=== PATIENT | female | born 2000 | race African-American/Black ===

== ENCOUNTER 2024-04-04 10:45 | Emergency (ER) | payer SELFPAY ==
--- OUTSIDE RECORDS SUMMARY | 2024-04-04 10:47 | XMS REPORT | Continuity of Care Document ---
Author Name Unknown Address [address] [place] [address] [facility] thconnect Address 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 Role Phone Pcp, Patient Does Not Have A Primary Care Physic josh LEELEE RAMÍREZ Attending Clinician Unavailable Lisa Grijalva MD Attending Clinician [phone] LISA GRIJALVA Attending Clinician Unavailable Doctor Unassigned, [place] Attending Clinician U navailable Payers Payer Name Policy Type Policy Number Effective Date Expirati on Date Source Problems Condition Name Condition Details Condition Category Status Onset Date Resolution Date Last Treatment Date Treating Clinician Comments Source Nausea and vomiting, unspecifie d vomiting type Nausea and vomiting, unspecifie d vomiting type Disease Active 07-05 00:00: 00 [facility] No known active problems No known active problems Disease [facility] Allergies, Adverse Reactions, Alerts Allergy Name Allergy Type Status Severity Reaction(s) Onset Date Inactive Date Treating Clinician Comments Source NO KNOWN ALLERGIE S Drug Class Active [facility] Social History Social Habit Start Date Stop Date Quantity Comments Source Sexual orientation [facility] Alcohol intake 2023-07-05 00:00:00 2023-07-05 00:00:00 Ex-drinker (finding) [facility] History of Social function 2023-07-05 00:00:00 2023-07-05 00:00:[address] [facility] Tobacco use and exposure 2021-03-08 00:00:00 2021-03-08 00:00:00 Smokeless tobacco non-user [facility] Sex Assigned At 2000 00:00:00 2000 00:00:[address] [facility] Smoking Status Start Date Stop Date Source Never smoked tobacco [facility] Medications Ordered Medication Name Filled Medication Name Start Date Stop Date Current Medication? Ordering Clinician Indication Dosage Frequency Signature (SIG) Comments Components Source NaCl 0.9% (NS) bolus infusion 1,000 mL 07-05 09:30: 00 07-05 10:43 :00 No 1000mL at 999 mL/hr, 1,000 mL, IV Infusion, ONCE, 1 dose, On Valerie 07/05/23 at 0330, SHEBA [facility] dicyclomine (BENTYL) injection 20 mg 07-05 09:30: 00 07-05 08:58 :00 No 20mg 20 mg, Intramuscu lar, ONCE, 1 dose, On Valerie 07/05/23 at 0330, Routine [facility] ondansetron (ZOFRAN (PF)) injection 4 mg 07-05 09:30: 00 07-05 08:58 :00 No 4mg 4 mg, Slow IV Push, ONCE, 1 dose, On Valerie 07/05/23 at 0330, SHEBA [facility] ondansetron (ZOFRAN) 4 mg tablet 07-05 00:00: 00 Yes [id number] 4mg Take 1 tablet by mouth every 8 (eight) hours. [facility] No known medications 03-08 09:26: 31 No [facility] Vital Signs Vital Name Observation Time Observation Value Comments S fariba Systolic blood pressure 2023-07-05 10:38:00 103 mm[Hg] [facility] Diastolic blood pressure 2023-07-05 10:38:00 67 mm[Hg] [facility] Heart rate 2023-07-05 10:38:00 92 /min [facility] Body temperature 2023-07-05 10:38:[address] [facility] Respiratory rate 2023-07-05 10:38:00 16 /min [facility] Oxygen saturation in Arterial blood by Pulse oximetry 2023-07-05 10:38:00 99 /min [facility] Body height 2023-07-05 08:44:00 160 cm [facility] Body weight 2023-07-05 08:44:00 46.267 kg [facility] BMI 2023-07-05 08:44:00 18.07 kg/m2 [facility] Systolic blood pressure 2021-03-08 13:54:00 109 mm[Hg] [facility] Diastolic blood pressure 2021-03-08 13:54:00 76 mm[Hg] [facility] Heart rate 2021-03-08 13:54:00 77 /min [facility] Body temperature 2021-03-08 13:54:[address] [facility] Respiratory rate 2021-03-08 13:54:00 18 /min [facility] Body height 2021-03-08 13:54:00 157.5 cm [facility] Body weight 2021-03-08 13:54:00 44.509 kg [facility] BMI 2021-03-08 13:54:00 17.95 kg/m2 [facility] Body mass index (BMI) [Percentile] Per age and sex 2021-03-08 13:54:00 5.83 % [facility] Procedures Procedure Date / Time Performed Performing Clinician Source ASSIGNMENT OF BENEFITS 2023-07-05 10:16:59 Docto r Unassigned, [place] [facility] COMP. METABOLIC PANEL (16994) 2023-07-05 09:54:00 Leelee Ramí[address] [facility] POCT TEST 2023-07-05 09:47:00 Ez Ramírez [facility] URINALYSIS 2023-07-05 09:45:00 Leelee Ramírez [facility] URINE DRUG (IMMUNOASSAY) - COMPREHENSIVE DRUG SCREEN W/O REFLEX 2023-07-05 09:45:00 Leelee Ramírez [facility] CBC WITH DIFF 2023-07-05 08:57:00 Leelee Ramírez [facility] CONSENT/REFUSAL FOR DIAGNOSIS AND TREATMENT 2023-07-05 08:34:22 Doctor Unassigned, [place] [facility] POCT TEST 2021-03-08 14:42:00 Lisa Grijalva [facility] Encounters Start Date/Time End Date/Time Encounter Type Admission Type Attending [facility] Care Facility Care Department Encounter ID Source 2023-07-05 02:38:00 2023-07-05 04:45:00 Emergency X LEELEE RAMÍREZ [facility] ERT [id number] [facility] 2023-07-05 02:38:00 2023-07-05 04:45:00 Emergency Leelee Ramírez [facility] [id number] [facility] 2021-03-08 08:40:37 2021-03-08 09:25:41 Initial Visit Lisa Grijalva [facility] [id number] [facility] 2021-03-08 08:30:00 2021-03-08 08:30:00 Outpatient R LISA GRIJALVA [facility] [id number] Jostin [facility] 2021-03-08 00:00:00 2021-03-08 00:00:00 Orders Only Doctor Unassigned, [place] [facility] [id number] [facility] Results Test Description Test Time Test Comments Results Result Co mments Source [facility] [id number] 09:47:00* Test Item Value Reference Range Interpretation Comme nts POCT PREG (test code = 1605) Negative On board controls acceptable with C Line (test code = 3574) Yes POCT PREG LOT # (test code = 3575) [id number] POCT PREG TEST DATE ( test code = 3576) Lab Interpretation (test cod e = 29298-2) Normal [facility] [id number] 09:06:10* Test Item Value Reference Range Interpretation Comme nts WBC (test code = 6690-2) 9.85 See_Comment [Automated [employer] ge] The system which generated this result transmitted reference range: 4.30 - 11.10 10*3/?L. The reference range was not used to interpret this result as normal/abnormal. RBC (test code = 789-8) 6.92 See_Comment H [Automated [employer] ge] The system which generated this result transmitted reference range: 3.93 - 5.25 10*6/?L. The reference range was not used to interpret this result as normal/abnormal. HGB (test code = 718-7) 14.6 g/dL 11.6-15.0 HCT (test code = 4544-3) 46.5 % 35.7-45.2 H MCV (test code = 787-2) 67.2 fL 80.6-95.5 L MCH (test code = 785-6) 21.1 pg 25.9-32.8 L MCHC (test code = 786-4) 31.4 g/dL 31.6-35.1 L RDW-SD (test code = 74685-5) 37.0 fL 39.0-49.9 L RDW-CV (test code = 788-0) 18.0 % 12.0-15.5 H PLT (test code = 777-3) 456 See_Comment H [Automated messa ge] The system which generated this result transmitted reference range: 166 - 358 10*3/?L. The reference range was not used to interpret this result as normal/abnormal. MPV (test code = 99449-6) 8.9 fL 9.5-12.9 L NRBC/100 WBC (test code = 3630502815) 0.0 See_Comment [Automated me ssage] The system which generated this result transmitted reference range: 0.0 - 10.0 /100 WBCs. The reference range was not used to interpret this result as normal/abnormal. NRBC x10^3 (test code = 3286721096) See_Comment [Automated messa ge] The system which generated this result transmitted reference range: 10*3/?L. The reference range was not used to interpret this result as normal/abnormal. GRAN MAT (NEUT) % (test code = 770-8) 81.6 % IMM GRAN % (test code = 2535806975) 0.30 % LYMPH % (test code = 736-9) 11.9 % MONO % (test code = 5905-5) 5.9 % EOS % (test code = 713-8) 0.1 % BASO % (test code = 706-2) 0.2 % GRAN MAT x10^3(ANC) (test code = 5593582845) 8.04 10*3/uL 1.88-7.09 H IMM GRAN x10^3 (test code = 5049505992) 0.03 10*3/uL 0.00-0.06 LYMPH x10^3 (test code = 731-0) 1.17 10*3/uL 1.32-3.29 L MONO x10^3 (test code = 742-7) 0.58 10*3/uL 0.33-0.92 EOS x10^3 (test code = 711-2) 0.03-0.39 L BASO x10^3 (test code = 704-7) 0.01-0.07 Lab Interpretation (test code = 43041-6) Abnormal [facility] [id number] 14:42:00* Test Item Value Reference Range Interpretation Comme nts POCT PREG (test code = 1605) Negative On board controls acceptable with C Line (test code = 3574) Yes POCT PREG LOT # (test code = 3575) POCT PREG TEST DATE ( test code = 3576) Lab Interpretation (test cod e = 75662-5) Normal [facility] Notes Date/Time Note Provider Source 2023-07-05 04:44:21 Pt given printed and verbal discharge instructions regarding N/V and gastroenteritis Pt verbalized understanding of instructions, pt awake alert oriented, resp reg unlabored, skin w/d, color appropriate for race, moves all ext well,pt encouraged to follow up with pcp Advised to seek medical attention for new/prolonged/worsening of symptoms No adverse reaction to meds given in ER noted upon discharge PIV d'cd, dressing to site, catheter in tact. Awake, alert oriented, resp reg unlabored, skin w/d, pt leaving amb with steady gait, in no apparent distress ELLA Cabrera RN [facility] 2023-07-05 02:43:27 CC: vomiting and diarrhea x since 2pm. Pt's son has the same symptoms. PMHx: none Awake, alert, oriented, resp reg unlabored, skin warm, color appropriate for race, moves all ext without difficulty, amb with steady gait ELLA Gonzalez RN [facility] 2023-07-05 02:40:51 Summary: CT Waiting on iv and hcg for CT ELLA Mercado [facility]
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
[2024-04-04] MEDS ORDERED: CEFTRIAXONE 500 MG/VIAL ONE (16:01)
[2024-04-04] MEDS ORDERED: LIDOCAINE 1% MPF 2 ML AMPULE ONE (16:02)
[2024-04-04] MEDS ORDERED: AZITHROMYCIN 250 MG TAB ONE (16:02)
[2024-04-05 03:41] VITALS: BP 117/66; O2SAT 100
== END 2024-04-04 16:39 | disposition home or self-care (01) ==
LOC: ER 10:45
DX: Z04.41 Encounter for examination and observation following alleged adult rape (principal)
CPT/HCPCS: 96372; 99284